=== PATIENT | male | born 1980 | race Caucasian/White ===

== ENCOUNTER → 2018-12-03 15:13 | Outpatient (CLI) | payer OTHER, MEDICAID, SELFPAY ==
[2018-12-03 15:46] LABS: Add Manual Diff / Slide Review NO; Basophils Absolute Auto 100 /uL (0-100); Basophils Percent Auto 1.1 % (0-2); Eosinophils Absolute Auto 100 /uL (0-450); Eosinophils Percent Auto 1.7 % (2-4); Hematocrit 41.8 % (41-53); Hemoglobin 14.1 g/dL (13.5-17.5); Lymphocytes Absolute Auto 1400 /uL (1100-4500); Lymphocytes Percent Auto 21.2 % (25-40); Mean Corpuscular HGB Conc 33.7 % (30-36); Mean Corpuscular Hemoglobin 29.2 PG (26-34); Mean Corpuscular Volume 86.6 fL (80-100); Monocytes Absolute Auto 700 /uL (0-900); Monocytes Percent Auto 10.9 % (3-14); Neutrophils Absolute Auto 4300 /uL (1500-7000); Neutrophils Percent Auto 65.1 % (50-75); Platelet Count 335 X10^3/uL (150-400); Red Blood Cell Count 4.83 X10^6/uL (4.5-5.9); Red Cell Distribution Width 12.9 % (11.6-14.8); White Blood Cell Count 6.6 X10^3/uL (4.5-11.0)
[2018-12-03 17:09] LABS: Alanine Aminotransferase 40 IU/L (21-72); Albumin 4.7 g/dL (3.5-5.0); Albumin Globulin Ratio 1.4 (1.0-2.8); Alkaline Phosphatase 62 U/L (38-126); Aspartate Aminotransferase 32 IU/L (17-59); BUN Creatinine Ratio 16.3 (6-22); Bilirubin Total 0.5 mg/dL (0.2-1.3); Blood Urea Nitrogen 13 mg/dL (9-20); Calcium 10.2 mg/dL (8.4-10.2); Carbon Dioxide 29 mmol/L (22-32); Chloride 100 mmol/L (98-107); Cholesterol 208 mg/dL (140-199); Estimated Glomerular Filt Rate > 60.0 mL/min (>60); Globulin 3.3 g/dL (1.7-4.1); Glucose 91 mg/dL (70-100); HDL Cholesterol 99 mg/dL (40-60); HEMOLYSIS < 15 (0-50); LDL Cholesterol Calculated 89 mg/dL (<100); Potassium 3.9 mmol/L (3.4-5.1); Sodium 139 mmol/L (137-145); Triglycerides 98 mg/dL (35-150)
[2018-12-03 17:40] LABS: Thyroid Stimulating Hormone 1.56 uIU/mL (0.47-4.68)
[2018-12-03 17:50] LABS: HIV 1 and 2 Antibody NEGATIVE (NEGATIVE)
[2018-12-05 15:18] LABS: RPR Screen Nonreactive (Nonreactive)
[2018-12-06 14:08] LABS: HSV 1 IgM Screen Negative (Negative); HSV 2 IgM Screen Negative (Negative)
[2018-12-08 08:20] LABS: Hepatitis A Antibody IgM NONREACTIVE (NONREACTIVE); Hepatitis Acute Panel Interp 0.01; Hepatitis B Core Antibody IgM NONREACTIVE (NONREACTIVE); Hepatitis B Surface Antigen NONREACTIVE (NONREACTIVE)
[2018-12-08 14:55] LABS: Hepatitis C Antibody NONREACTIVE
== END ==
PROVIDERS: Family Provider Orthopaedic Surgery; Visit Provider Family Medicine
DX: Z13.220 Encounter for screening for lipoid disorders (principal); Z13.29 Encounter for screening for other suspected endocrine disorder; Z20.2 Contact with and (suspected) exposure to infections with a predominantly sexual mode of transmission
CPT/HCPCS: 36415; 80053; 80061; 80074; 84443; 85025; 86592; 86695; 86696; 86703

== ENCOUNTER → 2018-12-06 09:33 | Outpatient (CLI) | payer OTHER, MEDICAID, SELFPAY ==
[2018-12-06 10:06] LABS: Appearance Urine UA CLEAR; Bilirubin Urine UA NEGATIVE (NEGATIVE); Color Urine UA YELLOW; Glucose Urine UA NEGATIVE (Negative); Ketones Urine UA NEGATIVE (NEGATIVE); Leukocyte Esterase Urine UA NEGATIVE (NEGATIVE); Nitrite Urine UA NEGATIVE (Negative); Occult Blood Urine UA NEGATIVE (Negative); Protein Urine UA NEGATIVE (Negative); Urobilinogen Urine UA 0.2 E.U./dL (0.2); pH Urine UA 6.5 (4.5-8.0)
[2018-12-06 11:32] LABS: Urine N gonorrhoeae NOT DETECTED
[2018-12-06 11:35] LABS: Urine Chlamydia NOT DETECTED
== END ==
PROVIDERS: PCP Family Medicine; Visit Provider Family Medicine
DX: Z13.220 Encounter for screening for lipoid disorders (principal); Z13.29 Encounter for screening for other suspected endocrine disorder; Z20.2 Contact with and (suspected) exposure to infections with a predominantly sexual mode of transmission
CPT/HCPCS: 81003; 87491; 87591

== ENCOUNTER → 2019-02-02 11:23 | Outpatient (CLI) | payer OTHER, MEDICAID, SELFPAY ==
--- NOTE | 2019-02-02 11:28 | DI.RAD.S_ITS ---
PROCEDURE: XR TIBIA FUBULA RT 2V INDICATIONS: Fx tib fib TECHNIQUE: 2 views of the tibia and fibula were acquired. COMPARISON: [facility], CR, TIB/FIB 2V RIGHT, 07/01/2011, 16:38. FINDINGS: Bones: There is an intramedullary selena with distal interlocking screw in the right tibia, with the screw ends protruding medially and laterally through the tibial cortex. There has been callous remodeling of the proximal right fibular metadiaphyseal fracture and the distal right tibial diaphyseal fracture, which are in unchanged alignment from prior exams. There is persistent thickening of the distal right tibial callus/cortices. No new fracture is identified. There is residual lucency within the anterior aspect of the distal right tibial callus. Soft tissues: No abnormal soft tissue calcifications or subjacent edema. IMPRESSION: Healing proximal right fibular and distal right tibial fractures in similar alignment to prior exam. Residual lucency within the anterior aspect of the distal right tibial healing callus is thought to represent fracture healing, with underlying infection thought less likely. Dictated by: Javier Gandara M.D. on 02/02/2019 at 13:25 Approved by: Javier Gandara M.D. on 02/02/2019 at 13:33
== END ==
PROVIDERS: PCP Family Medicine; Visit Provider Family Medicine
DX: S82.301D Unspecified fracture of lower end of right tibia, subsequent encounter for closed fracture with routine healing (principal); S82.831D Other fracture of upper and lower end of right fibula, subsequent encounter for closed fracture with routine healing
CPT/HCPCS: 73590

== ENCOUNTER 2019-07-29 12:47 | Emergency (ER) | payer OTHER, MEDICAID, SELFPAY ==
[2019-07-29 13:00] VITALS: BP 128/89; PULSE 97; RESP 16; TEMP 36.7; O2SAT 95
[2019-07-29 13:24] LABS: Add Manual Diff / Slide Review NO; Basophils Absolute Auto 0 /uL (0-100); Basophils Percent Auto 0.7 % (0-2); Eosinophils Absolute Auto 0 /uL (0-450); Eosinophils Percent Auto 0.8 % (2-4); Hematocrit 44.5 % (41-53); Hemoglobin 15.5 g/dL (13.5-17.5); Lymphocytes Absolute Auto 1600 /uL (1100-4500); Lymphocytes Percent Auto 26.8 % (25-40); Mean Corpuscular HGB Conc 34.8 % (30-36); Mean Corpuscular Hemoglobin 29.5 PG (26-34); Monocytes Absolute Auto 500 /uL (0-900); Monocytes Percent Auto 8.3 % (3-14); Neutrophils Absolute Auto 3800 /uL (1500-7000); Neutrophils Percent Auto 63.4 % (50-75); Platelet Count 268 X10^3/uL (150-400); Red Blood Cell Count 5.24 X10^6/uL (4.5-5.9); Red Cell Distribution Width 13.4 % (11.6-14.8); White Blood Cell Count 5.9 X10^3/uL (4.5-11.0)
[2019-07-29 13:30] LABS: INR 1.1 (0.9-1.3); Prothrombin Time 12.6 SECONDS (10.1-12.7)
[2019-07-29 13:33] LABS: PTT Partial Thromboplastin Tim 27 SECONDS (26.4-36.2)
[2019-07-29 13:34] LABS: Alanine Aminotransferase 49 IU/L (<50); Albumin 4.5 g/dL (3.5-5.0); Albumin Globulin Ratio 1.4 (1.0-2.8); Alkaline Phosphatase 68 U/L (38-126); Aspartate Aminotransferase 68 IU/L (17-59); BUN Creatinine Ratio 13.8 (6-22); Bilirubin Total 0.4 mg/dL (0.2-1.3); Blood Urea Nitrogen 11 mg/dL (9-20); Calcium 9.2 mg/dL (8.4-10.2); Carbon Dioxide 30 mmol/L (22-32); Chloride 100 mmol/L (98-107); Estimated Glomerular Filt Rate > 60.0 mL/min (>60); Globulin 3.3 g/dL (1.7-4.1); Glucose 129 mg/dL (70-100); HEMOLYSIS < 15 (0-50); Lipase 35 U/L (23-300); Potassium 3.4 mmol/L (3.4-5.1); Sodium 141 mmol/L (137-145); Total Protein 7.8 g/dL (6.3-8.2)
--- NOTE | 2019-07-29 15:54 | DI.RAD.S_ITS ---
PROCEDURE: XR RIBS RT MIN 3V W CXR 1V INDICATIONS: R rib pain TECHNIQUE: 2 views of the right ribs were acquired, along with a single view chest. COMPARISON: None. FINDINGS: Surgical changes and devices: None. Bones and chest wall: No fractures or dislocations. No suspicious bony lesions. Overlying soft tissues appear unremarkable. Lungs and pleura: No pleural effusions or pneumothorax. Lungs appear clear. Mediastinum: Mediastinal contours appear normal. Heart size is normal. IMPRESSION: Normal for age, source of current right rib pain symptoms is not seen. Please note that nondisplaced rib fractures may not be initially detected by plain film imaging but subsequent delayed imaging may allow accurate detection of previously undetected fracture. Dictated by: Isiah Saunders M.D. on 07/29/2019 at 16:48 Approved by: Isiah Saunders M.D. on 07/29/2019 at 16:49
--- NOTE | 2019-07-29 16:14 | ED_ITS ---
HPI - Back Pain/Injury <LOI Mccrary - Last Filed: 07/29/19 21:23> General Chief Complaint: Back Pain/Injury Stated Complaint: low back pain Time Seen by Provider: 07/29/19 14:51 Source: patient History of Present Illness HPI Narrative: 38-year-old male presents to the emergency department complaining of right thoracic pain for the past few years. He states it is worse with movement and better with rest. Patient states he occasionally takes ibuprofen for the pain, he uses a lidocaine patch to the area that was originally pre scribed occurs elbow. Patient denies any trauma to the area or any worsening pain but decided that he should have it checked out. Patient reports consuming alcohol in the past 24 hours. He did have 1 episode of diarrhea last night which has then resolved. He denies fevers, chest pain, shortness of breath, blood in his urine, pain with urination, abdominal pain, nausea, vomiting, diarrhea, or other concerns. Related Data Home Medications Medication Instructions Recorded Confirmed ibuprofen 800 mg tablet 800 mg PO TID 02/23/19 02/23/19 Allergies Allergy/AdvReac Type Severity Reaction Status Date / Time No Known Drug Allergies Allergy Verified 02/23/19 09:11 Review of Systems <LOI Mccrary - Last Filed: 07/29/19 21:23> Review of Systems Narrative: REVIEW OF SYSTEMS: GENERAL: Denies fever or chills. HENT: No head trauma. EYES: No double vision or vision loss. CARDIOVASCULAR: No chest pain or syncope. RESPIRATORY: No shortness of breath or cough. GASTROINTESTINAL: No nausea, vomiting, diarrhea, or constipation. MUSCULOSKELETAL: Complains of right thoracic back pain, see HPI. INTEGUMENTARY: No rash, lesions, or pruritus. NEURO: No numbness, tingling. PSYCH: No behavior or mood changes. Patient History <LOI Mccrary - Last Filed: 07/29/19 21:23> Medical History No significant medical problems (Acute) Social History Smoking Status: Former smoker Tobacco: How many years used: 10 alcohol intake: current (Occasional) Smoking Status: Former smoker alcohol intake frequency: 3 or more drinks per day Substance Use Type: does not use Exam <LOI Mccrary - Last Filed: 07/29/19 21:23> Initial Vital Signs Initial Vital Signs: Vital Signs Temperature 98.1 F 07/29/19 13:00 Pulse Rate 97 H 07/29/19 13:00 Respiratory Rate 16 07/29/19 13:00 Blood Pressure 128/89 07/29/19 13:00 Pulse Oximetry 95 07/29/19 13:00 PHYSICAL EXAMINATION: GENERAL: Well groomed, alert, and cooperative. Answers questions promptly and appropriately. Vital signs noted. ETOH odor noted. HENT: Normocephalic, atraumatic. Teeth intact. Oropharynx without erythema. EYES: PERRLA, symmetrical, sclera white, no periorbital swelling. CARDIOVASCULAR: S1 and S2 sounds normal. Regular rate and rhythm, no murmurs, clicks, or bruits. No pedal edema. RESPIRATORY: Normal respiratory rate, trachea midline, airway patent. No stridor, nasal flaring or accessory muscle use. Lungs are clear in all wang. : Abdomen nontender, no masses palpated. No rebound tenderness. MUSCULOSKELETAL: Tenderness to palpation of right posterior ribs approximately rib 6-8. No surrounding erythema or ecchymosis. No rashes. Normal gait and coordination. Equal tone and mass bilaterally. No spinal tenderness or deformities. EXTREMITIES: CMS intact. SKIN: Warm, dry, soft, appropriate color for ethnicity. No lesions, rashes, or wounds. NEURO: Alert and Oriented X 3. No sensory deficits. PSYCH: Appropriate affect and mood. <Fer Louie MD - Last Filed: 07/29/19 21:31> Initial Vital Signs Initial Vital Signs: Vital Signs Temperature 98.1 F 07/29/19 13:00 Pulse Rate 97 H 07/29/19 13:00 Respiratory Rate 16 07/29/19 13:00 Blood Pressure 128/89 07/29/19 13:00 Pulse Oximetry 95 07/29/19 13:00 Course <LOI Mccrary - Last Filed: 07/29/19 21:23> Course Course Narrative: Patient is lay refused x-ray, after discussion with patient about the need for further evaluation, he consented x-ray. Patient states he is feeling better after the stay in the emergency department with to leave. Orders Ordered: ED Orders 07/29/19 13:13 Complete Blood Count AUTO DIFF Stat Comprehensive Metabolic Panel Stat Lipase Stat Partial Thromboplastin Time Stat Prothrombin Time INR Stat 07/29/19 15:03 EKG-12 Lead Stat 07/29/19 15:54 XR ribs RT min 3V w CXR1V Stat Vital Signs Vital signs: Vital Signs - 8 hr 07/29/19 16:40 Pulse Rate 65 Respiratory Rate 16 Blood Pressure [Left Arm] 129/87 Pulse Oximetry 100 <Fer Louie MD - Last Filed: 07/29/19 21:31> Orders Ordered: ED Orders 07/29/19 13:13 Complete Blood Count AUTO DIFF Stat Comprehensive Metabolic Panel Stat Lipase Stat Partial Thromboplastin Time Stat Prothrombin Time INR Stat 07/29/19 15:03 EKG-12 Lead Stat 07/29/19 15:54 XR ribs RT min 3V w CXR1V Stat Vital Signs Vital signs: Vital Signs - 8 hr 07/29/19 16:40 Pulse Rate 65 Respiratory Rate 16 Blood Pressure [Left Arm] 129/87 Pulse Oximetry 100 MDM - Back Pain/Injury <LOI Mccrary - Last Filed: 07/29/19 21:23> Medical Records Attestation: I reviewed the patient's medical records. Lab Data Attestation: I reviewed the patient's lab results. Result diagrams: 07/29/19 13:13 07/29/19 13:13 Labs: Lab Results 07/29/19 07/29/19 07/29/19 Range/Units 13:13 13:13 13:13 WBC 5.9 (4.5-11.0) X10^3/uL RBC 5.24 (4.5-5.9) X10^6/uL Hgb 15.5 (13.5-17.5) g/dL Hct 44.5 (41-53) % MCV 85.0 (80-100) fL MCH 29.5 (26-34) PG MCHC 34.8 (30-36) % RDW 13.4 (11.6-14.8) % Plt Count 268 (150-400) X10^3/uL Neut % (Auto) 63.4 (50-75) % Lymph % (Auto) 26.8 (25-40) % [place] % (Auto) 8.3 (3-14) % Eos % (Auto) 0.8 L (2-4) % Baso % (Auto) 0.7 (0-2) % Neut # (Auto) 3800 (2787-9278) /uL Lymph # (Auto) 1600 (0156-1623) /uL [place] # (Auto) 500 (0-900) /uL Eos # (Auto) 0 (0-450) /uL Baso # (Auto) 0 (0-100) /uL PT 12.6 (10.1-12.7) SECONDS INR 1.1 (0.9-1.3) APTT 27 (26.4-36.2) SECONDS Sodium 141 (137-145) mmol/L Potassium 3.4 (3.4-5.1) mmol/L Chloride 100 (98-107) mmol/L Carbon Dioxide 30 (22-32) mmol/L BUN 11 (9-20) mg/dL Creatinine 0.80 (0.66-1.25) mg/dL Estimated GFR > 60.0 (>60) mL/min BUN/Creatinine Ratio 13.8 (6-22) Glucose 129 H (70-100) mg/dL Calcium 9.2 (8.4-10.2) mg/dL Total Bilirubin 0.4 (0.2-1.3) mg/dL AST 68 H (17-59) IU/L ALT 49 (<50) IU/L Alkaline Phosphatase 68 (38-126) U/L Total Protein 7.8 (6.3-8.2) g/dL Albumin 4.5 (3.5-5.0) g/dL Globulin 3.3 (1.7-4.1) g/dL Albumin/Globulin Ratio 1.4 (1.0-2.8) Lipase 35 (23-300) U/L Urine Dip Bedside Urine Glucose Negative Bedside Urine Bilirubin - Negative Bedside Urine Ketone - Negative Urine Specific [place] 1.010 Bedside Urine Occult Blood - Negative Bedside Urine pH 6.0 Bedside Urine Protein - Negative Bedside Urine Urobilinogen - Negative Bedside Urine Nitrite - Negative Bedside Urine Leukocytes - Negative Esterase Imaging Data Rib- Xray: Radiologist's Impression: [address] [address] XRay Report Signed Patient: Addy Mckenzie LMR#: [id number] : 1980Acct:[id number] Age/Sex: 38 / MDate of Service: 07/29/19 Loc: ED Accession Number: [id number] Procedure: XR ribs RT min 3V w CXR1V Ordering Provider: Emily Upton PROCEDURE: XR RIBS RT MIN 3V W CXR 1V INDICATIONS: R rib pain TECHNIQUE: 2 views of the right ribs were acquired, along with a single view chest. COMPARISON: None. FINDINGS: Surgical changes and devices: None. Bones and chest wall: No fractures or dislocations. No suspicious bony lesions. Overlying soft tissues appear unremarkable. Lungs and pleura: No pleural effusions or pneumothorax. Lungs appear clear. Mediastinum: Mediastinal contours appear normal. Heart size is normal. IMPRESSION: Normal for age, source of current right rib pain symptoms is not seen. Please note that nondisplaced rib fractures may not be initially detected by plain film imaging but subsequent delayed imaging may allow accurate detection of previ ously undetected fracture. Dictated by: Isiah Saunders M.D. on 07/29/2019 at 16:48 Approved by: Isiah Saunders M.D. on 07/29/2019 at 16:49 MDM Narrative Medical decision making narrative: This is a 38-year-old male presenting with right-sided posterior rib pain for the past few years. Differential includes musculoskeletal injury, chronic back pain, strain (this is most likely as pain is reproducible on examination). Less likely fracture due to lack of impact, chronic description of pain, and negative x-ray. Less likely cardiac etiology or pulmonary etiology non-remarkable x-ray and laboratory work. Less likely renal involvement such as renal calculi or pyelonephritis due to negative laboratory work and negative urine. Less likely liver etiology as liver enzymes are within normal limits. Patient was encouraged to follow up with his primary care provider for further evaluation and testing of his pain. Patient was encouraged to decrease his alcohol intake. Patient years plan of care verbalize d understanding. <Fre Louie MD - Last Filed: 07/29/19 21:31> Lab Data Labs: Lab Results 07/29/19 07/29/19 07/29/19 Range/Units 13:13 13:13 13:13 WBC 5.9 (4.5-11.0) X10^3/uL RBC 5.24 (4.5-5.9) X10^6/uL Hgb 15.5 (13.5-17.5) g/dL Hct 44.5 (41-53) % MCV 85.0 (80-100) fL MCH 29.5 (26-34) PG MCHC 34.8 (30-36) % RDW 13.4 (11.6-14.8) % Plt Count 268 (150-400) X10^3/uL Neut % (Auto) 63.4 (50-75) % Lymph % (Auto) 26.8 (25-40) % [place] % (Auto) 8.3 (3-14) % Eos % (Auto) 0.8 L (2-4) % Baso % (Auto) 0.7 (0-2) % Neut # (Auto) 3800 (4971-9992) /uL Lymph # (Auto) 1600 (8149-4073) /uL [place] # (Auto) 500 (0-900) /uL Eos # (Auto) 0 (0-450) /uL Baso # (Auto) 0 (0-100) /uL PT 12.6 (10.1-12.7) SECONDS INR 1.1 (0.9-1.3) APTT 27 (26.4-36.2) SECONDS Sodium 141 (137-145) mmol/L Potassium 3.4 (3.4-5.1) mmol/L Chloride 100 (98-107) mmol/L Carbon Dioxide 30 (22-32) mmol/L BUN 11 (9-20) mg/dL Creatinine 0.80 (0.66-1.25) mg/dL Estimated GFR > 60.0 (>60) mL/min BUN/Creatinine Ratio 13.8 (6-22) Glucose 129 H (70-100) mg/dL Calcium 9.2 (8.4-10.2) mg/dL Total Bilirubin 0.4 (0.2-1.3) mg/dL AST 68 H (17-59) IU/L ALT 49 (<50) IU/L Alkaline Phosphatase 68 (38-126) U/L Total Protein 7.8 (6.3-8.2) g/dL Albumin 4.5 (3.5-5.0) g/dL Globulin 3.3 (1.7-4.1) g/dL Albumin/Globulin Ratio 1.4 (1.0-2.8) Lipase 35 (23-300) U/L Urine Dip Bedside Urine Glucose Negative Bedside Urine Bilirubin - Negative Bedside Urine Ketone - Negative Urine Specific [place] 1.010 Bedside Urine Occult Blood - Negative Bedside Urine pH 6.0 Bedside Urine Protein - Negative Bedside Urine Urobilinogen - Negative Bedside Urine Nitrite - Negative Bedside Urine Leukocytes - Negative Esterase Discharge Plan Departure Patient Disposition: Home Clinical Impression: Back pain Qualifiers: Back pain location: thoracic back pain Chronicity: chronic Back pain laterality: right Qualified Code(s): M54.6 - Pain in thoracic spine Discharge Date/Time: 07/29/19 17:30 Instructions: DI for Thoracic Back Pain Activity Restrictions/Additional Instructions: Thank you for entrusting me with your care today. As discussed, your x-rays and laboratory work an urine are negative for any causes of your pain. This might be musculoskeletal in nature. I suggest taking ibuprofen as needed for pain. Please follow up with your primary care provider in the next 1-2 weeks for further evaluation if your symptoms continue. Return emergency department for new or worsening symptoms such as chest pain, shortness of breath, syncope, dizziness, other concerns. Prescriptions: No Action ibuprofen 800 mg tablet 800 mg PO TID RF: 0 Referrals: Le Glover DO [Primary Care Provider] -
[2019-07-29 16:40] VITALS: BP 129/87; PULSE 65; RESP 16; O2SAT 100
== END 2019-07-29 17:30 | disposition home or self-care (01) ==
PROVIDERS: Emergency Medicine; Emergency Provider Nurse Practitioner; PCP Family Medicine
DX: M54.6 Pain in thoracic spine (principal); R07.81 Pleurodynia; R10.9 Unspecified abdominal pain
CPT/HCPCS: 36415; 71101; 80053; 81003; 83690; 85025; 85610; 85730; 93005; 99283; 99284

== ENCOUNTER → 2023-03-22 18:55 | Outpatient (CLI) | payer OTHER, MEDICAID, SELFPAY ==
--- NOTE | 2023-03-22 18:58 | DI.RAD.S_ITS ---
PROCEDURE: XR KNEE LT 3V INDICATIONS: Knee pain 3 weeks, swelling 2 days; no known injury. TECHNIQUE: 3 views of the knee were acquired. COMPARISON: None. FINDINGS: Bones: No fractures or dislocations. No suspicious bony lesions. Soft tissues: Moderate joint effusion. No suspicious soft tissue calcifications. IMPRESSION: Moderate knee joint effusion. No displaced fracture. Dictated by: Hung Monroy M.D. on 03/22/2023 at 19:41 Approved by: Hung Monroy M.D. on 03/22/2023 at 19:42
== END ==
PROVIDERS: PCP Family Medicine; Referring Provider Student in an Organized Health Care Education/Training Program; Visit Provider Student in an Organized Health Care Education/Training Program
DX: M25.562 Pain in left knee (principal); M25.462 Effusion, left knee
CPT/HCPCS: 73562

== ENCOUNTER → 2023-03-26 13:51 | Outpatient (CLI) | payer OTHER, MEDICAID, SELFPAY ==
--- NOTE | 2023-03-26 13:54 | DI.US.S_ITS ---
PROCEDURE: US PERIPH VENOUS LOW EXTREM LT INDICATIONS: LEFT POSTERIOR KNEE PAIN TECHNIQUE: Real-time imaging, as well as color and pulse Doppler interrogation, were performed of the lower extremity deep veins from the inguinal ligament to the popliteal fossa, with documentation of the visualized calf veins. COMPARISON: None. FINDINGS: The common femoral, femoral, popliteal, and the visualized calf veins are normally compressible, and free of intraluminal thrombus. Color and pulse Doppler demonstrate normal phasic intraluminal flow. There is normal augmentation response to distal compression maneuver. 8.1 x 2.8 x 6.0 cm complex cyst in the popliteal fossa IMPRESSION: No evidence of deep venous thrombosis, left lower extremity. Popliteal cyst or resolving popliteal soft tissue hematoma Approved by: Srini Matos M.D. on 03/26/2023 at 14:32
== END ==
PROVIDERS: PCP Student in an Organized Health Care Education/Training Program; Referring Provider Student in an Organized Health Care Education/Training Program; Visit Provider Student in an Organized Health Care Education/Training Program
DX: M25.562 Pain in left knee (principal); M79.89 Other specified soft tissue disorders
CPT/HCPCS: 93971

== ENCOUNTER → 2023-04-27 14:24 | Outpatient (CLI) | payer OTHER, MEDICAID, SELFPAY ==
--- NOTE | 2023-04-27 | DI.MRI.S_ITS ---
PROCEDURE: MR KNEE LT WO CON INDICATIONS: PAIN IN KNEE TECHNIQUE: Noncontrast sagittal PD fast spin echo and T2 fast spin echo with fat saturation, sagittal 3-D FLASH with fat saturation; coronal T1 spin echo and PD fast spin echo with fat saturation, and axial PD fast spin echo with fat saturation through the knee. COMPARISON: [facility], CR, XR KNEE LT 3V, 03/22/2023, 19:09. FINDINGS: Image quality: Excellent. Menisci: Horizontal oblique tear involving posterior horn of medial meniscus is seen extending to inferior articulating surface. The lateral meniscus is intact. The meniscal root ligaments appear intact. Cruciate ligaments: The anterior cruciate ligament is thickened with intrasubstance T2 hyperintense signal. The posterior cruciate ligament is intact. Medial structures: The medial collateral ligament appears mildly thickened. The posterior oblique ligament, semimembranosus tendon insertions, oblique popliteal ligament, and meniscocapsular junction appear intact. Visualized portions of the pes anserinus tendons appear normal. No abnormal bursal fluid. Lateral structures: The lateral collateral ligament, long and short heads of the biceps femoris tendon appear thickened. The popliteus tendon appears normal; the popliteofibular ligament appears intact. Iliotibial band appears normal. Anterior structures: The quadriceps and patellar tendons appear intact. Patellar alignment is normal. No femoral trochlear dysplasia or ventral trochlear prominence. No edema in the infrapatellar fat pad. Bones and cartilage: No bone marrow contusions or fractures. The cartilage of the medial and lateral femorotibial compartments, as well as the patellofemoral compartment, appears normal in thickness. Joint space: There is moderate joint effusion. There is a lobulated and septated Martell's cyst measures up to 4.1 x 4.2 x 5.1 cm in size. Normal appearing synovial plicae are incidentally noted. IMPRESSION: 1. Horizontal oblique tear involving posterior horn of medial meniscus extending to inferior articulating surface. No focal lateral meniscal tear. 2. Sprain/low to moderate grade intrasubstance partial-thickness tear involving anterior cruciate ligament. No ACL rupture. The PCL is intact. 3. Low-grade MCL sprain. Low to moderate grade LCL sprain and distal biceps femorals tendinosis. 4. No marrow edema. No fracture or dislocation. Articulating cartilages are intact. 5. Moderate joint effusion and a complex Martell's cyst as above. No gross loose bodies. Dictated by: Bernabe Barney M.D. on 04/29/2023 at 10:01 Approved by: Bernabe Barney M.D. on 04/29/2023 at 10:06
== END ==
PROVIDERS: Referring Provider Physician Assistant Medical; Visit Provider Physician Assistant Medical
DX: S83.242A Other tear of medial meniscus, current injury, left knee, initial encounter (principal); S83.512A Sprain of anterior cruciate ligament of left knee, initial encounter; S83.412A Sprain of medial collateral ligament of left knee, initial encounter; S83.422A Sprain of lateral collateral ligament of left knee, initial encounter; M25.562 Pain in left knee; M25.462 Effusion, left knee; M71.22 Synovial cyst of popliteal space [Baker], left knee
CPT/HCPCS: 73721

== ENCOUNTER 2023-06-12 13:46 | Day surgery (SDC) | payer OTHER, MEDICAID, SELFPAY ==
[2023-06-06 14:17] VITALS: BMI 20.3
[2023-06-12] MEDS: LACTATED RINGERS 1,000 ML 100 ML IV (14:41)
[2023-06-12 14:42] VITALS: BMI 20.3
[2023-06-12 14:48] VITALS: BP 122/94; PULSE 90; RESP 18; TEMP 36.6; O2SAT 97
--- NOTE | 2023-06-12 15:47 | PM.PREOP ---
Pre-operative Note Interval Note History & Physical reviewed/Exam performed by Physician: Yes Changes to H&P: No
[2023-06-12] MEDS: CEFAZOLIN 2 GM/100 ML PREMIX 100 ML IV (16:00)
--- NOTE | 2023-06-12 16:11 | SUR.OPER ---
Supine on padded OR bed, head on pillow, arms secured on padded arm boards at <90 degrees abduction, legs uncrossed, safety belt at thigh, lateral brace at thigh
[2023-06-12] MEDS: BUPIVACAINE 0.25% (PF) 30 ML, EPINEPHrine 0.15 MG INJ (16:36)
--- NOTE | 2023-06-12 16:41 | PM.OP.1 ---
Operative Date/Time/Diagnoses Date of procedure: 06/12/23 Time of procedure: 16:41 Pre-op diagnosis: Left knee medial meniscus tear Post-op diagnosis: same Procedure & Clinicians Procedure: 1. Left medial meniscus partial meniscectomy 2. Synovectomy multiple compartments left knee 3. Chondroplasty left knee Same procedure as scheduled: Yes Indications: This is a 42-year-old male who has a long history of left knee pain with mechanical symptoms with a confirmed medial meniscus tear on the left knee. We previously discussed meniscal debridement which he wished to go forward with. Surgeon: Kervin Quinn Click Yes if Unassisted: Yes Anesthesia Type: General Operative Notes Findings: Findings: Patellofemoral compartment-intact cartilage in the trochlea and medial and lateral facet of the patella with some mild chondromalacia in the trochlea Lateral gutter: No loose bodies Medial gutter: No loose bodies Medial compartment: Femoral condyle cartilage-intact smooth cartilage, medial tibial plateau-intact cartilage, medial meniscus-vertical tear of the posterolateral horn of the medial meniscus Intercondylar notch: Intact PCL, ACL intact with the attachment to the lateral wall Lateral compartment: Femoral condyle cartilage intact, lateral tibial plateau cartilage, intact, lateral meniscus intact Closure Type: primary Specimen(s): none sent Prosthetic devices, grafts, tissues, transplants, or devices: Implants: None Estimated Blood Loss (mL): 5 Tourniquet time (min): 10 Procedure in detail: Procedure: Patient was seen in the preoperative holding area. The left lower extremity was marked with my initials. We again went over the risks and benefits of surgery and they wished to go forward with surgery. They were brought back to the operating room and placed supine on the operating table. IV antibiotics was administered and the patient underwent smooth induction of anesthesia. A nonsterile tourniquet was placed on the upper thigh. The left lower extremity was then prepped and draped in the standard sterile fashion and again my initials were again noted. A time-out was performed. Procedure was begun with a outflow portal superomedial. Then a anteromedial and anterolateral portal were established outside in. A diagnostic scope was then performed demonstrating the above-noted findings. Synovectomy of the anterior fat pad which encompassed multiple compartment including the lateral compartment and patellofemoral compartment was completed to allow complete extension. Slight debridement of articular cartilage was performed arthroscopically of the medial facet of the patella and of the trochlea. Attention was then turned to the medial meniscus. A flap was noted originating at the posterior horn and curving around to the midbody. A 4.0 mm shaver was used to debride the flap creating a smooth border. Instruments were removed and the knee was suctioned dry. 10 cc Marcaine were injected into the joint through the outflow portal. The wounds were closed with 3-0 Monocryl Steri-Strips and 4x4s. It was then wrapped with an Femi bandage. The patient was awoken from anesthesia without any complications and transported back to the postoperative recovery unit. Complications: none Post-operative Condition: stable Disposition: PACU Plan for aftercare: Weight-bearing as tolerated. Okay for dressings to come off in 3 days in order to shower. Let warm soap and water run over the incisions. Pat dry and ensure that the incision is completely dry before placing new clean dressings. If there are Steri-Strips, ensure that it is dry underneath. If water gets under the Steri-Strips, remove them. Keep the new dressings on for 2 more days. At postoperative day 5, remove all dressings and shower daily and let air dry.
[2023-06-12 16:42] VITALS: BP 91/58; PULSE 71; RESP 13; TEMP 36.7; O2SAT 98
[2023-06-12 16:47] VITALS: BP 90/57; PULSE 71; RESP 12; TEMP 36.7; O2SAT 98
[2023-06-12 16:52] VITALS: BP 93/60; PULSE 71; RESP 12; TEMP 36.7; O2SAT 98
[2023-06-12 16:58] VITALS: BP 99/66; PULSE 83; RESP 14; TEMP 36.6; O2SAT 99
[2023-06-12 17:03] VITALS: BP 100/67; PULSE 83; RESP 16; TEMP 36.6; O2SAT 100
[2023-06-12] MEDS: OXYCODONE IR 5 MG TABLET PO (17:11)
== END 2023-06-12 17:30 | disposition home or self-care (01) ==
PROVIDERS: Referring Provider Orthopaedic Surgery; Visit Provider Orthopaedic Surgery
PROC: (CPT 29870; principal; 2023-06-12 15:15)
DX: S83.242A Other tear of medial meniscus, current injury, left knee, initial encounter (principal); S83.32XA Tear of articular cartilage of left knee, current, initial encounter; M65.9 Synovitis and tenosynovitis, unspecified; M94.262 Chondromalacia, left knee
CPT/HCPCS: 29881; 29876; J0171; J0690; J1100; J1885; J2250; J2405; J2704; J3010

== ENCOUNTER 2023-06-30 14:54 | Emergency (ER) | payer OTHER, MEDICAID, SELFPAY ==
[2023-06-30 14:58] VITALS: BP 162/104; PULSE 72; RESP 16; TEMP 36.9; O2SAT 99
--- NOTE | 2023-06-30 14:59 | ED.GENADULT ---
HPI - General Adult General Chief complaint: Recheck/Abnormal Lab/Rx Stated complaint: fit for group home Time Seen by Provider: 06/30/23 14:58 History of Present Illness HPI narrative: Patient brought in by law enforcement for medical clearance for group home. Patient had left knee surgery 2 weeks ago. Had left medial meniscus partial meniscectomy. Patient has been doing well. Patient had follow up this past Saturday in the office with Orthopedics, Dr Zarate, for follow up. He is still wearing his knee brace. No surgical dressing or stitches or Steri-Strips present. No recent injury. No fever or chills. Patient has been ambulating without difficulty. He was brought in by law enforcement, arrested for burglary Related Data Home Medications Medication Instructions Recorded Confirmed ibuprofen 800 mg tablet 800 mg PO TID 02/23/19 06/12/23 Previous Rx's Medication Instructions Recorded hydrocodone 5 mg-acetaminophen 325 1 tab PO Q6H PRN pain #20 tabs 06/12/23 mg tablet ondansetron HCl 4 mg tablet 4 mg PO Q8H PRN nausea and 06/12/23 vomiting #10 tabs Allergies Allergy/AdvReac Type Severity Reaction Status Date / Time No Known Drug Allergies Allergy Verified 06/12/23 14:26 Review of Systems Review of Systems Narrative: GENERAL: negative chills, fatigue, malaise, fever, sweats. HEENT: negative sinus pain, ear pain, sore throat RESPIRATORY: negative dyspnea, cough CARDIOVASCULAR: negative chest pain, palpitations GASTROINTESTINAL: negative nausea, vomiting, abdominal pain : negative dysuria, frequency, hematuria MUSCULOSKELETAL: negative muscle or bony pain SKIN: negative rash, skin lesions NEUROLOGIC: negative weakness, numbness ROS Unobtainable: All systems reviewed & are unremarkable except as noted in HPI and below Patient History Medical History No significant medical problems Surgical History Hx of adenoidectomy Hx of knee surgery History of sinus surgery History of open reduction and internal fixation (ORIF) procedure Social History household members: other Smoking Status: Current every day smoker Tobacco: How many years used: 10 alcohol intake: current Smoking Status: Current every day smoker alcohol intake frequency: 3 or more drinks per day Substance Use Type: does not use Exam Narrative Exam Narrative: GENERAL: in no distress, not toxic not dyspneic HEAD: Normocephalic. EYES: Pupils equal round CARDIOVASCULAR: Regular rate and rhythm RESPIRATORY: Clear to auscultation. Breath sounds equal bilaterally. No wheezes, rales, or rhonchi. GASTROINTESTINAL: Abdomen soft, non-tender EXTREMITIES: No gross deformities. Left knee to toes exposed. Foot is warm soft and pink. Light touch intact to foot and toes. Foot has strong pedal pulse with brisk cap refills. Examination of left knee. It is dry, no discharge. Able to flex and extend of the knee without difficulty fully extend, fully flex to 90?. It is nontender. Patient able to stand independently. There was no no no injury. NEURO: AOx4. SKIN: Warm and dry PSYCH: Not anxious, is cooperative Initial Vital Signs Initial Vital Signs: Vital Signs Temperature 98.4 F 06/30/23 14:58 Pulse Rate 72 06/30/23 14:58 Respiratory Rate 16 06/30/23 14:58 Blood Pressure 162/104 H 06/30/23 14:58 Pulse Oximetry 99 06/30/23 14:58 Oxygen Delivery Method Room Air 06/30/23 14:58 Medical Decision Making MDM Narrative Medical decision making narrative: Patient brought in by law enforcement for medical clearance for group home. Patient had left knee surgery 2 weeks ago. Had left medial meniscus partial meniscectomy. Patient has been doing well. Patient had follow up this past Saturday in the office with Orthopedics, Dr Zarate, for follow up. He is still wearing his knee brace. No surgical dressing or stitches or Steri-Strips present. No recent injury. No fever or chills. Patient has been ambulating without difficulty. He was brought in by law enforcement, arrested for burglary After history and exam no blood work or imaging indicated. Patient here for evaluation of left knee although there was no injury to the knee, patient is under custody of law enforcement and needed medical clearance. MDM CC: Medical clearance Complicating co-morbidities: Recent knee surgery Data collected from: Patient and law enforcement Medical records reviewed: June 12, 2023 operative notes Differential considered: Includes but not limited to medical clearance Exam documented above, pertinent findings include: Nontender knee. Full extension and flexion to 90? Treatments: None required. Re-evaluations: Reviewed exam with patient as well as patient's operative notes. Patient did have follow up with Orthopedics this past Saturday 2 days ago. Exam is reassuring.. Patient is fit for group home Discussion: Appropriate for discharge to custody of law enforcement. Exam is reassuring. There was no no injury to the knee. No recent illness. Exam is reassuring. Diagnosis: Medical clearance Discharge Plan Departure Patient Disposition: Home Clinical Impression: Encounter for medical screening examination Activity Restrictions/Additional Instructions: You have been brought in by law enforcement for medical screening for incarceration. You have been medically cleared for group home. The exam of your knee is reassuring. Prescriptions: No Action ibuprofen 800 mg tablet 800 mg PO TID hydrocodone-acetaminophen 5-325 mg tablet 1 tab PO Q6H PRN (Reason: pain) Qty: 20 0RF ondansetron HCl 4 mg tablet 4 mg PO Q8H PRN (Reason: nausea and vomiting) Qty: 10 0RF Referrals: Miscellaneous,Doctor, MD [Primary Care Provider] - Stand Alone Forms: Patient Portal/API
== END 2023-06-30 15:30 | disposition home or self-care (01) ==
PROVIDERS: Emergency Provider Emergency Medicine
DX: Z02.89 Encounter for other administrative examinations (principal); Z98.890 Other specified postprocedural states
CPT/HCPCS: 99281; 99282

== ENCOUNTER → 2023-11-13 16:12 | Outpatient (CLI) | payer OTHER, MEDICAID, SELFPAY | PROVIDERS: Visit Provider Nurse Practitioner Family | DX: T14.8XXA Other injury of unspecified body region, initial encounter (principal) | CPT/HCPCS: 87070; 87075; 87077; 87147; 87205 ==

== ENCOUNTER 2023-12-14 17:45 | Emergency (ER) | payer OTHER, MEDICAID, SELFPAY ==
[2023-12-14 18:05] VITALS: BP 121/70; PULSE 72; RESP 16; TEMP 36.5; O2SAT 100; BMI 20.6
== END 2023-12-14 18:33 | disposition left against medical advice (07) ==
PROVIDERS: Emergency Provider Emergency Medicine
CPT/HCPCS: 99281

== ENCOUNTER 2023-12-15 16:30 | Emergency (ER) | payer OTHER, MEDICAID, SELFPAY ==
[2023-12-15 16:34] VITALS: BP 127/67; PULSE 75; RESP 16; O2SAT 97; BMI 20.6
--- NOTE | 2023-12-15 16:42 | EKG_ITS ---
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
--- NOTE | 2023-12-15 16:42 | ED_ITS ---
HPI - Psych <Danita Petty MD - Last Filed: 12/17/23 12:31> General Chief Complaint: Psychiatric Symptoms Stated Complaint: General Scratches Time Seen by Provider: 12/15/23 16:41 History of Present Illness HPI Narrative: 43-year-old male presents by EMS for psych evaluation. Found wandering in the [place], patient stated that he was stuck in sticker bushes. Told law enforcement that people were following him. Apparently recently at [facility], where a urine drug screen was positive for amphetamines. Related Data Previous Rx's Medication Instructions Recorded amoxicillin 875 mg-potassium 1 tab PO Q12H #14 tabs 12/10/23 clavulanate 125 mg tablet triamcinolone acetonide 0.025 % 1 applic topical BID #80 grams 12/10/23 topical cream Allergies Allergy/AdvReac Type Severity Reaction Status Date / Time No Known Drug Allergies Allergy Verified 12/16/23 09:15 Patient History <Danita Petty MD - Last Filed: 12/17/23 12:31> Medical History No significant medical problems Surgical History Hx of adenoidectomy Hx of knee surgery History of sinus surgery History of open reduction and internal fixation (ORIF) procedure Social History (System 12/16/23 @ 09:15 by Lee Ann De La Torre) household members: other Smoking Status: Current every day smoker Tobacco: How many years used: 10 alcohol intake: current Smoking Status: Current every day smoker alcohol intake frequency: 3 or more drinks per day Substance Use Type: marijuana and methamphetamine Exam <Danita Petty MD - Last Filed: 12/17/23 12:31> Initial Vital Signs Initial Vital Signs: Vital Signs Pulse Rate 75 12/15/23 16:34 Respiratory Rate 16 12/15/23 16:34 Blood Pressure 127/67 12/15/23 16:34 Pulse Oximetry 97 12/15/23 16:34 Oxygen Delivery Method Room Air 12/15/23 16:34 Const: Awake, alert, no acute distress, disheveled, appears older than stated age Cardiac: regular rate, regular rhythm RESP: unlabored, clear bilaterally, no wheezing Skin: Multiple superficial abrasions over face, arms, torso Neuro: AO x3, CN II-XII grossly intact, moves all extremities <Bailey Asher DO - Last Filed: 12/18/23 07:31> Initial Vital Signs Initial Vital Signs: Vital Signs Pulse Rate 75 12/15/23 16:34 Respiratory Rate 16 12/15/23 16:34 Blood Pressure 127/67 12/15/23 16:34 Pulse Oximetry 97 12/15/23 16:34 Oxygen Delivery Method Room Air 12/15/23 16:34 Course <Danita Petty MD - Last Filed: 12/17/23 12:31> Orders Ordered: Discontinued Medications Haloperidol (Haloperidol 5 Mg/Ml Vial) 10 mg IM NOW ONE Stop: 12/15/23 16:45 Last Admin: 12/16/23 00:49 Dose: Not Given Documented By: SB Lorazepam (Lorazepam 2 Mg/Ml Inj) 2 mg IM NOW ONE Stop: 12/15/23 16:45 Last Admin: 12/16/23 00:50 Dose: Not Given Documented By: SB Nicotine (Nicotine 21 Mg Patch) 21 mg TOP NOW ONE Stop: 12/16/23 07:50 Last Admin: 12/16/23 10:36 Dose: 21 mg Documented By: Vital Signs Vital signs: Vital Signs - 8 hr 12/15/23 16:34 Pulse Rate 75 Respiratory Rate 16 Blood Pressure 127/67 Pulse Oximetry 97 Oxygen Delivery Method Room Air <Bailey Asher DO - Last Filed: 12/18/23 07:31> Orders Ordered: Discontinued Medications Haloperidol (Haloperidol 5 Mg/Ml Vial) 10 mg IM NOW ONE Stop: 12/15/23 16:45 Last Admin: 12/16/23 00:49 Dose: Not Given Documented By: SB Lorazepam (Lorazepam 2 Mg/Ml Inj) 2 mg IM NOW ONE Stop: 12/15/23 16:45 Last Admin: 12/16/23 00:50 Dose: Not Given Documented By: SB Nicotine (Nicotine 21 Mg Patch) 21 mg TOP NOW ONE Stop: 12/16/23 07:50 Last Admin: 12/16/23 10:36 Dose: 21 mg Documented By: Vital Signs Vital signs: Vital Signs - 8 hr 12/15/23 16:34 Pulse Rate 75 Respiratory Rate 16 Blood Pressure 127/67 Pulse Oximetry 97 Oxygen Delivery Method Room Air [facility] - Psych <Danita Petty MD - Last Filed: 12/17/23 12:31> Lab Data 12/15/23 17:19 12/15/23 17:19 Labs: Lab Results 12/15/23 12/15/23 12/15/23 Range/Units 17:19 17:31 17:40 WBC 14.1 H (4.5-11.0) X10^3/uL RBC 4.09 L (4.5-5.9) X10^6/uL Hgb 11.7 L (13.5-17.5) g/dL Hct 34.0 L (41-53) % MCV 83.2 (80-100) fL MCH 28.8 (26-34) PG MCHC 34.5 (30-36) % RDW 12.7 (11.6-14.8) % Plt Count 377 (150-400) X10^3/uL Neut % (Auto) 86.0 H (50-75) % Lymph % (Auto) 7.1 L (25-40) % [place] % (Auto) 6.5 (3-14) % Eos % (Auto) 0.0 L (2-4) % Baso % (Auto) 0.4 (0-2) % Neut # (Auto) 60968 H (0655-5418) /uL Lymph # (Auto) 1000 L (3261-4618) /uL [place] # (Auto) 900 (0-900) /uL Eos # (Auto) 0 (0-450) /uL Baso # (Auto) 100 (0-100) /uL Sodium 138 (137-145) mmol/L Potassium 4.4 (3.4-5.1) mmol/L Chloride 106 (98-107) mmol/L Carbon Dioxide 25 (22-32) mmol/L BUN 27 H (9-20) mg/dL Creatinine 0.86 (0.66-1.25) mg/dL Estimated GFR > 60 (>60) mL/min BUN/Creatinine Ratio 31.4 H (6-22) Glucose 114 H (70-100) mg/dL Calcium 8.9 (8.4-10.2) mg/dL Total Bilirubin 0.8 (0.2-1.3) mg/dL AST 157 H (17-59) IU/L ALT 60 H (<50) IU/L Alkaline Phosphatase 49 (38-126) U/L Ammonia < 9 L (9-30) umol/L Total Protein 7.3 (6.3-8.2) g/dL Albumin 4.5 (3.5-5.0) g/dL Globulin 2.8 (1.7-4.1) g/dL Albumin/Globulin Ratio 1.6 (1.0-2.8) Urine Color Urine Appearance Urine pH (4.5-8.0) Ur Specific [place] (1.000-1.035) Urine Protein (Negative) Urine Glucose (UA) (Negative) g/dL Urine Ketones (NEGATIVE) Urine Occult Blood (Negative) Urine Nitrate (Negative) Urine Bilirubin (NEGATIVE) Ur Bilirubin Confirm (Negative) Urine Urobilinogen (0.2) E.U./dL Ur Leukocyte Esterase (NEGATIVE) Urine RBC (0-5/HPF) Urine WBC (0-5/HPF) Ur Squamous Epith Cells (0-5/HPF) Urine Bacteria (None) Hyaline Casts (None) Ur Culture Indicated? Vol Urine Centrifuged Salicylates < 1.0 (<20) mg/dL U Opiates 300ng/mL cut (Negative) Ur Oxycodone Screen (Negative) Urine Methadone Screen (Negative) Acetaminophen < 10 (10-30) ug/mL Ur Barbiturates Screen (Negative) U Tricyclic Antidepress (Negative) Ur Phencyclidine Scrn (Negative) Ur Amphetamines Screen (Negative) U Methamphetamines Scrn (Negative) Ur MDMA Scrn (Ecstasy) (Negative) U Benzodiazepines Scrn (Negative) Urine Cocaine Screen (Negative) U Marijuana (THC) Screen (Negative) Urine Specific [place] Ethyl Alcohol < 10 ( - 10) mg/dL Ur Creatinine SARS-CoV-2 (PCR) Negative (Negative) Influenza A (RT-PCR) Flu a negative (NEGATIVE) Influenza B (RT-PCR) Flu b negative (NEGATIVE) RSV (PCR) Negative (Negative) 12/15/23 12/15/23 Range/Units 20:01 22:15 WBC (4.5-11.0) X10^3/uL RBC (4.5-5.9) X10^6/uL Hgb (13.5-17.5) g/dL Hct (41-53) % MCV (80-100) fL MCH (26-34) PG MCHC (30-36) % RDW (11.6-14.8) % Plt Count (150-400) X10^3/uL Neut % (Auto) (50-75) % Lymph % (Auto) (25-40) % [place] % (Auto) (3-14) % Eos % (Auto) (2-4) % Baso % (Auto) (0-2) % Neut # (Auto) (4233-4314) /uL Lymph # (Auto) (4506-0344) /uL [place] # (Auto) (0-900) /uL Eos # (Auto) (0-450) /uL Baso # (Auto) (0-100) /uL Sodium (137-145) mmol/L Potassium (3.4-5.1) mmol/L Chloride (98-107) mmol/L Carbon Dioxide (22-32) mmol/L BUN (9-20) mg/dL Creatinine (0.66-1.25) mg/dL Estimated GFR (>60) mL/min BUN/Creatinine Ratio (6-22) Glucose (70-100) mg/dL Calcium (8.4-10.2) mg/dL Total Bilirubin (0.2-1.3) mg/dL AST (17-59) IU/L ALT (<50) IU/L Alkaline Phosphatase (38-126) U/L Ammonia (9-30) umol/L Total Protein (6.3-8.2) g/dL Albumin (3.5-5.0) g/dL Globulin (1.7-4.1) g/dL Albumin/Globulin Ratio (1.0-2.8) Urine Color Yellow Urine Appearance Clear Urine pH 5.0 TNP (4.5-8.0) Ur Specific [place] >=1.030 H (1.000-1.035) Urine Protein Negative (Negative) Urine Glucose (UA) Trace H (Negative) g/dL Urine Ketones Trace H (NEGATIVE) Urine Occult Blood Negative (Negative) Urine Nitrate Negative (Negative) Urine Bilirubin 1+ H (NEGATIVE) Ur Bilirubin Confirm Negative (Negative) Urine Urobilinogen 0.2 (0.2) E.U./dL Ur Leukocyte Esterase Negative (NEGATIVE) Urine RBC None seen (0-5/HPF) Urine WBC 0-1/hpf (0-5/HPF) Ur Squamous Epith Cells None seen (0-5/HPF) Urine Bacteria None seen (None) Hyaline Casts 5-10/lpf (None) Ur Culture Indicated? Cult not indicated Vol Urine Centrifuged Low vol <10ml (spun) A Salicylates (<20) mg/dL U Opiates 300ng/mL cut Negative (Negative) Ur Oxycodone Screen Negative (Negative) Urine Methadone Screen Negative (Negative) Acetaminophen (10-30) ug/mL Ur Barbiturates Screen Negative (Negative) U Tricyclic Antidepress Negative (Negative) Ur Phencyclidine Scrn Negative (Negative) Ur Amphetamines Screen Positive H (Negative) U Methamphetamines Scrn Positive H (Negative) Ur MDMA Scrn (Ecstasy) Negative (Negative) U Benzodiazepines Scrn Negative (Negative) Urine Cocaine Screen Negative (Negative) U Marijuana (THC) Screen Negative (Negative) Urine Specific [place] TNP Ethyl Alcohol ( - 10) mg/dL Ur Creatinine TNP SARS-CoV-2 (PCR) (Negative) Influenza A (RT-PCR) (NEGATIVE) Influenza B (RT-PCR) (NEGATIVE) RSV (PCR) (Negative) MDM Narrative Medical decision making narrative: Brought in for mental health evaluation. Paranoid delusions, recently took methamphetamines. Medical clearance labs ordered. Initial laboratory work reviewed. Pending drug screen. Ordered IM Haldol and lorazepam in case of agitation, he is currently resting comfortably on bed and cooperative and calm with staff. Care of patient transferred to Dr. Asher at 1800 Dr. Asher- Patient signed out to me by Dr. Petty seen evaluated patient myself. He is calm and cooperative. Patient was found naked under multiple bloody blankets. He is found to have multiple scratches all over his body he was [place]. According to social work they were reports that he may have killed someone however police looked into this they are not finding any evidence of such. He is currently denying suicidal homicidal ideations. He denies any sort of hallucinations. Patient was here in the ED yesterday, brought in again by police with reports of feeling unsafe and wanting detox help. Patient left prior to being seen. Apparently patient was also [facility] where he was given multiple resources about detox centers and mental health. He really is complaining of some scratches all over. Blood work has been reviewed overall reassuring mild leukocytosis of 14 urinalysis positive for amphetamines and methamphetamine Social work talked with DCR and based on reports of possible homicidal ideation seems reasonable. Patient is cooperative. Unfortunately I can not find RADIO REPAIRMAN report or evaluation. I called and spoke to DCR myself he states that patient really not meeting DC are criteria if he is voluntarily able to go to detox that is reasonable. Patient is accepted at [facility] in the morning. <Bailey Asher, DO - Last Filed: 12/18/23 07:31> Lab Data Labs: Lab Results 12/15/23 12/15/23 12/15/23 Range/Units 17:19 17:31 17:40 WBC 14.1 H (4.5-11.0) X10^3/uL RBC 4.09 L (4.5-5.9) X10^6/uL Hgb 11.7 L (13.5-17.5) g/dL Hct 34.0 L (41-53) % MCV 83.2 (80-100) fL MCH 28.8 (26-34) PG MCHC 34.5 (30-36) % RDW 12.7 (11.6-14.8) % Plt Count 377 (150-400) X10^3/uL Neut % (Auto) 86.0 H (50-75) % Lymph % (Auto) 7.1 L (25-40) % [place] % (Auto) 6.5 (3-14) % Eos % (Auto) 0.0 L (2-4) % Baso % (Auto) 0.4 (0-2) % Neut # (Auto) 63641 H (6197-6716) /uL Lymph # (Auto) 1000 L (7398-9827) /uL [place] # (Auto) 900 (0-900) /uL Eos # (Auto) 0 (0-450) /uL Baso # (Auto) 100 (0-100) /uL Sodium 138 (137-145) mmol/L Potassium 4.4 (3.4-5.1) mmol/L Chloride 106 (98-107) mmol/L Carbon Dioxide 25 (22-32) mmol/L BUN 27 H (9-20) mg/dL Creatinine 0.86 (0.66-1.25) mg/dL Estimated GFR > 60 (>60) mL/min BUN/Creatinine Ratio 31.4 H (6-22) Glucose 114 H (70-100) mg/dL Calcium 8.9 (8.4-10.2) mg/dL Total Bilirubin 0.8 (0.2-1.3) mg/dL AST 157 H (17-59) IU/L ALT 60 H (<50) IU/L Alkaline Phosphatase 49 (38-126) U/L Ammonia < 9 L (9-30) umol/L Total Protein 7.3 (6.3-8.2) g/dL Albumin 4.5 (3.5-5.0) g/dL Globulin 2.8 (1.7-4.1) g/dL Albumin/Globulin Ratio 1.6 (1.0-2.8) Urine Color Urine Appearance Urine pH (4.5-8.0) Ur Specific [place] (1.000-1.035) Urine Protein (Negative) Urine Glucose (UA) (Negative) g/dL Urine Ketones (NEGATIVE) Urine Occult Blood (Negative) Urine Nitrate (Negative) Urine Bilirubin (NEGATIVE) Ur Bilirubin Confirm (Negative) Urine Urobilinogen (0.2) E.U./dL Ur Leukocyte Esterase (NEGATIVE) Urine RBC (0-5/HPF) Urine WBC (0-5/HPF) Ur Squamous Epith Cells (0-5/HPF) Urine Bacteria (None) Hyaline Casts (None) Ur Culture Indicated? Vol Urine Centrifuged Salicylates < 1.0 (<20) mg/dL U Opiates 300ng/mL cut (Negative) Ur Oxycodone Screen (Negative) Urine Methadone Screen (Negative) Acetaminophen < 10 (10-30) ug/mL Ur Barbiturates Screen (Negative) U Tricyclic Antidepress (Negative) Ur Phencyclidine Scrn (Negative) Ur Amphetamines Screen (Negative) U Methamphetamines Scrn (Negative) Ur MDMA Scrn (Ecstasy) (Negative) U Benzodiazepines Scrn (Negative) Urine Cocaine Screen (Negative) U Marijuana (THC) Screen (Negative) Urine Specific [place] Ethyl Alcohol < 10 ( - 10) mg/dL Ur Creatinine SARS-CoV-2 (PCR) Negative (Negative) Influenza A (RT-PCR) Flu a negative (NEGATIVE) Influenza B (RT-PCR) Flu b negative (NEGATIVE) RSV (PCR) Negative (Negative) 12/15/23 12/15/23 Range/Units 20:01 22:15 WBC (4.5-11.0) X10^3/uL RBC (4.5-5.9) X10^6/uL Hgb (13.5-17.5) g/dL Hct (41-53) % MCV (80-100) fL MCH (26-34) PG MCHC (30-36) % RDW (11.6-14.8) % Plt Count (150-400) X10^3/uL Neut % (Auto) (50-75) % Lymph % (Auto) (25-40) % [place] % (Auto) (3-14) % Eos % (Auto) (2-4) % Baso % (Auto) (0-2) % Neut # (Auto) (9420-4160) /uL Lymph # (Auto) (4684-8233) /uL [place] # (Auto) (0-900) /uL Eos # (Auto) (0-450) /uL Baso # (Auto) (0-100) /uL Sodium (137-145) mmol/L Potassium (3.4-5.1) mmol/L Chloride (98-107) mmol/L Carbon Dioxide (22-32) mmol/L BUN (9-20) mg/dL Creatinine (0.66-1.25) mg/dL Estimated GFR (>60) mL/min BUN/Creatinine Ratio (6-22) Glucose (70-100) mg/dL Calcium (8.4-10.2) mg/dL Total Bilirubin (0.2-1.3) mg/dL AST (17-59) IU/L ALT (<50) IU/L Alkaline Phosphatase (38-126) U/L Ammonia (9-30) umol/L Total Protein (6.3-8.2) g/dL Albumin (3.5-5.0) g/dL Globulin (1.7-4.1) g/dL Albumin/Globulin Ratio (1.0-2.8) Urine Color Yellow Urine Appearance Clear Urine pH 5.0 TNP (4.5-8.0) Ur Specific [place] >=1.030 H (1.000-1.035) Urine Protein Negative (Negative) Urine Glucose (UA) Trace H (Negative) g/dL Urine Ketones Trace H (NEGATIVE) Urine Occult Blood Negative (Negative) Urine Nitrate Negative (Negative) Urine Bilirubin 1+ H (NEGATIVE) Ur Bilirubin Confirm Negative (Negative) Urine Urobilinogen 0.2 (0.2) E.U./dL Ur Leukocyte Esterase Negative (NEGATIVE) Urine RBC None seen (0-5/HPF) Urine WBC 0-1/hpf (0-5/HPF) Ur Squamous Epith Cells None seen (0-5/HPF) Urine Bacteria None seen (None) Hyaline Casts 5-10/lpf (None) Ur Culture Indicated? Cult not indicated Vol Urine Centrifuged Low vol <10ml (spun) A Salicylates (<20) mg/dL U Opiates 300ng/mL cut Negative (Negative) Ur Oxycodone Screen Negative (Negative) Urine Methadone Screen Negative (Negative) Acetaminophen (10-30) ug/mL Ur Barbiturates Screen Negative (Negative) U Tricyclic Antidepress Negative (Negative) Ur Phencyclidine Scrn Negative (Negative) Ur Amphetamines Screen Positive H (Negative) U Methamphetamines Scrn Positive H (Negative) Ur MDMA Scrn (Ecstasy) Negative (Negative) U Benzodiazepines Scrn Negative (Negative) Urine Cocaine Screen Negative (Negative) U Marijuana (THC) Screen Negative (Negative) Urine Specific [place] TNP Ethyl Alcohol ( - 10) mg/dL Ur Creatinine TNP SARS-CoV-2 (PCR) (Negative) Influenza A (RT-PCR) (NEGATIVE) Influenza B (RT-PCR) (NEGATIVE) RSV (PCR) (Negative) MDM Narrative Medical decision making narrative: Brought in for mental health evaluation. Paranoid delusions, recently took methamphetamines. Medical clearance labs ordered. Initial laboratory work reviewed. Pending drug screen. Patient received IM Haldol and lorazepam for agitation, he is currently resting comfortably on bed and cooperative and calm with staff. Care of patient transferred to Dr. Asher at 1800 Dr. Asher- Patient signed out to me by Dr. Petty seen evaluated patient myself. He is calm and cooperative. Patient was found naked under multiple bloody blankets. He is found to have multiple scratches all over his body he was [place]. According to social work they were reports that he may have killed someone however police looked into this they are not finding any evidence of such. He is currently denying suicidal homicidal ideations. He denies any sort of hallucinations. Patient was here in the ED yesterday, brought in again by police with reports of feeling unsafe and wanting detox help. Patient left prior to being seen. Apparently patient was also [facility] where he was given multiple resources about detox centers and mental health. He really is complaining of some scratches all over. Blood work has been reviewed overall reassuring mild leukocytosis of 14 urinalysis positive for amphetamines and methamphetamine Social work talked with DCR and based on reports of possible homicidal ideation seems reasonable. Patient is cooperative. Unfortunately I can not find RADIO REPAIRMAN report or evaluation. I called and spoke to DCR myself he states that patient really not meeting DC are criteria if he is voluntarily able to go to detox that is reasonable. Patient is accepted at [facility] in the morning. Discharge Plan Departure Patient Disposition: Xfer Psychiatric Hosp Clinical Impression: Methamphetamine abuse Prescriptions: No Action amoxicillin-pot clavulanate 875-125 mg tablet 1 tab PO Q12H Qty: 14 0RF triamcinolone acetonide 0.025 % cream 1 applic topical BID Qty: 80 0RF Referrals: Miscellaneous,Doctor, [Primary Care Provider] -
[2023-12-15 17:37] LABS: Acetaminophen < 10 ug/mL (10-30); Alanine Aminotransferase 60 IU/L (<50); Albumin 4.5 g/dL (3.5-5.0); Albumin Globulin Ratio 1.6 (1.0-2.8); Alkaline Phosphatase 49 U/L (38-126); Aspartate Aminotransferase 157 IU/L (17-59); BUN Creatinine Ratio 31.4 (6-22); Bilirubin Total 0.8 mg/dL (0.2-1.3); Blood Urea Nitrogen 27 mg/dL (9-20); Calcium 8.9 mg/dL (8.4-10.2); Carbon Dioxide 25 mmol/L (22-32); Chloride 106 mmol/L (98-107); Estimated Glomerular Filt Rate > 60 mL/min (>60); Ethanol (ETOH) < 10 mg/dL; Globulin 2.8 g/dL (1.7-4.1); Glucose 114 mg/dL (70-100); HEMOLYSIS < 15 (0-50); Potassium 4.4 mmol/L (3.4-5.1); Salicylate < 1.0 mg/dL (<20); Sodium 138 mmol/L (137-145); Total Protein 7.3 g/dL (6.3-8.2)
[2023-12-15 17:38] LABS: Add Manual Diff / Slide Review NO; Basophils Absolute Auto 100 /uL (0-100); Basophils Percent Auto 0.4 % (0-2); Eosinophils Absolute Auto 0 /uL (0-450); Hemoglobin 11.7 g/dL (13.5-17.5); Lymphocytes Absolute Auto 1000 /uL (1100-4500); Lymphocytes Percent Auto 7.1 % (25-40); Mean Corpuscular HGB Conc 34.5 % (30-36); Mean Corpuscular Hemoglobin 28.8 PG (26-34); Mean Corpuscular Volume 83.2 fL (80-100); Monocytes Absolute Auto 900 /uL (0-900); Monocytes Percent Auto 6.5 % (3-14); Neutrophils Absolute Auto 12100 /uL (1500-7000); Platelet Count 377 X10^3/uL (150-400); Red Blood Cell Count 4.09 X10^6/uL (4.5-5.9); Red Cell Distribution Width 12.7 % (11.6-14.8); White Blood Cell Count 14.1 X10^3/uL (4.5-11.0)
--- NOTE | 2023-12-15 18:00 | PC.NURSE ---
Pt ambulatory to room 13 from [facility] w/o assistance.This RN to bedside to assess pt. Pt states that he would like his wounds cleaned and does not understand why he is here. [facility] Deputy Granda at the bedside to explain to the pt on what his situation is. Pt unhappy about the decisions made that led him here. Pt complaining about explained policies and procedure for pts on [facility] holds. Pt process explained extensively to the pt. Pt asking multiple questions, making multiple reasonable and unreasonable requests/demands. Pt oriented to his situation and advised of what will and will not be happening, all questions answered. Pts wounds cleaned on bilateral face,chest,arms, shins, and feet w hibiclens. Pt advised that he would need a shower w soap to clean the rest of his wounds. Pt advised that staff would not be cleaning his entire body. Pts deeper, but still superficial wounds examined. Pt verbalizes understanding and requesting sandwiches and water. Pt given multiple sandwiches, water, and snacks. 20g IV placed, blood drawn.
[2023-12-15 18:07] LABS: Ammonia (NH3) < 9 umol/L (9-30)
[2023-12-15 19:01] LABS: Influenza A - CEPHEID Flu A NEGATIVE (NEGATIVE); Influenza B - CEPHEID Flu B NEGATIVE (NEGATIVE); Respiratory Syncytial Virus Negative (Negative)
[2023-12-15 19:08] LABS: COVID-19 CEPHEID 4-PLEX PCR Negative (Negative)
[2023-12-15 20:27] LABS: Appearance Urine UA CLEAR; Bilirubin Urine UA 1+ (NEGATIVE); Color Urine UA YELLOW; Glucose Urine UA TRACE g/dL (Negative); Ketones Urine UA TRACE (NEGATIVE); Leukocyte Esterase Urine UA NEGATIVE (NEGATIVE); Nitrite Urine UA NEGATIVE (Negative); Occult Blood Urine UA NEGATIVE (Negative); Protein Urine UA NEGATIVE (Negative); Specific Gravity Urine UA >=1.030 (1.000-1.035); Urobilinogen Urine UA 0.2 E.U./dL (0.2)
[2023-12-15 20:35] LABS: Bacteria Urine None Seen; Culture Indicated Urine Cult Not Indicated; Hyaline Casts Urine 5-10/LPF; Ictotest Urine Negative (Negative); RBC Urine None Seen (0-5/HPF); Squamous Epithelial Cell Urine None Seen (0-5/HPF); Urine Volume Low Vol <10mL (spun); WBC Urine 0-1/HPF (0-5/HPF)
--- NOTE | 2023-12-15 21:43 | PC.NURSE ---
semiconductor lab technician note: PT. gets easily agitated if he does not get what he asks for right away and Randomly making statements, I new this would happen. he continues to call out to the staff, asking when is the doctor gonna be in and where is the child protective services social worker? The RN is notified and will speak to him. Staff continue to keep calm, listen and keep situation from escalating.
[2023-12-15 22:28] LABS: UR Morphine/Opiate cutoff 300 Negative (Negative); Urine Amphetamines Positive (Negative); Urine Barbiturates Negative (Negative); Urine Benzodiazepines Negative (Negative); Urine Cocaine Negative (Negative); Urine MDMA Negative (Negative); Urine Methadone Negative (Negative); Urine Methamphetamines Positive (Negative); Urine Oxycodone Negative (Negative); Urine Phencyclidine Negative (Negative); Urine Tetrahydrocannabinol Negative (Negative); Urine Tricyclic Antidepressant Negative (Negative)
--- NOTE | 2023-12-16 00:01 | PC.NURSE ---
AMBER Asher to vanessa to speak w pt. Pt agrees to stay for possible voluntary placement. Pt voicing complaints about his care, asking for X-Rays, asking for meds related to care from a previous dentist visit and [facility] visit that were filled by him. Pt unhappy about the answers that he is receiving. Pt told that he will probably need to follow up with his PCP or dentist for his new concerns. Pt advised that his pain is due to his many superficial lacerations and rolling through sticker bushes. Pt advised that these will be painful for a while and will take time to heal. Pt also advised that a shower is sufficient to clean his wounds and that staff will not be cleaning his entire body. Pt offered materials to do this himself. This RN did don gloves and re-evaluate his areas of concern. Pt advised again that these wounds are superficial and that, while painful, do not require intervention. Pt ignoring this offer for materials to clean his wounds to his satisfaction and continuing to complain that all of his wounds were not individually cleaned out by staff. Pt stating that he had other visits at other hospitals and his experiences were different from what he experienced here. Pt simultaneously stating that he did not feel safe at those ERs and voicing complaints that was overall unhappy w his treatment at those facilities as well. Pt asked multiple times what staff can do for him. Pt continues to voice new concerns, rehash topics w conclusions that cannot be changed, or voice complaints. Pt unable to be specific about what he wants that this ER is offering in regards to his visit today. Pt advised that this RN would advise the EMD of this conversation. AMBER Asher aware of the pts requests and this conversation.
--- NOTE | 2023-12-16 02:13 | PC.NURSE ---
Pt was agreeable to voluntary placement for detox. Pt was medically cleared by Dr. Asher. I called [facility] @ 0024 and spoke with Linda. She said that they will have bed availability in the AM and to fax over a packet for them to review for possible placement. Packet was faxed @ 0030.
[2023-12-16 10:35] VITALS: BP 137/62; PULSE 68; RESP 16; TEMP 36.6; O2SAT 100
[2023-12-16] MEDS: NICOTINE 21 MG PATCH TOP (10:36)
== END 2023-12-16 10:48 ==
PROVIDERS: Emergency Medicine; Emergency Provider Emergency Medicine
DX: F15.10 Other stimulant abuse, uncomplicated (principal); T14.8XXA Other injury of unspecified body region, initial encounter; R07.9 Chest pain, unspecified; Z20.822 Contact with and (suspected) exposure to COVID-19
CPT/HCPCS: 0241U; 36415; 80053; 80305; 80320; 80329; 81001; 82140; 85025; 93005; 99284; G0480